=== PATIENT | female | born 1980 | race American Indian/Alaskan Native ===

== ENCOUNTER 2017-05-16 14:53 | Emergency (ER) | payer OTHER ==
[2017-05-16 16:10] LABS: Basophils % (Auto) 0.3 % (0.0-1.8); Eosinophils % (Auto) 1.2 % (0.0-4.3); Hematocrit 32.9 % (30.3-42.9); Hemoglobin 10.6 gm/dl (10.1-14.3); Mean Corpuscular HGB Conc 32 % (30-34); Mean Corpuscular Hemoglobin 28 pg (28-32); Mean Corpuscular Volume 87 fl (79-97); Platelet Count 223 K/mm3 (140-440); Red Blood Count 3.79 M/mm3 (3.65-5.03); Red Cell Distribution Width 13.9 % (13.2-15.2); White Blood Count 6.7 K/mm3 (4.5-11.0)
[2017-05-16 17:26] LABS: Bilirubin,Urine NEG (Negative); Blood,Urine NEG (Negative); Ketones,Urine NEG (Negative); Leukocyte Esterase,Urine NEG (Negative); Mucus,Urine 2+ /HPF; Nitrite,Urine NEG (Negative); Protein,Urine <15 mg/dL mg/dL (Negative)
--- NOTE | 2017-05-16 18:45 | Ultrasound Report ---
FINAL REPORT PROCEDURE: US OB \T\lt; = 14 WEEKS FETUS TECHNIQUE: Real-time transabdominal sonography of the uterus, placenta, amniotic fluid, adnexa, and fetus was performed with image documentation. Measurements were obtained to determine age/size. M-mode Doppler was used to document heartbeat. CPT 57053 HISTORY: passing clots, 6 weeks COMPARISON: No prior studies are available for comparison. FINDINGS: Single live intrauterine is seen with a crown-rump length of 1.3 cm corresponding to 7 weeks 4 days gestational age. Estimated date of delivery based on this measurement is December 29, 2017. heart rate is 165 beats per minute. Small subchorionic hemorrhage is seen. Right ovary measures 3.0 x 2.4 x 2.1 cm. Left ovary measures 2.2 x 1.1 x 1.2 cm. No adnexal masses or free pelvic fluid are seen. IMPRESSION: Single live intrauterine gestation at approximately seven weeks 4 days. EDC by US December 29, 2017. Small subchronic hemorrhage is seen.
--- NOTE | 2017-05-16 19:04 | Ultrasound Report ---
FINAL REPORT PROCEDURE: US OB TRANSVAGINAL TECHNIQUE: Real-time transvaginal sonography of the uterus, placenta, amniotic fluid, adnexa, and fetus was performed with image documentation. Measurements were obtained to determine age/size. M-mode Doppler was used to document heartbeat. CPT 41051 HISTORY: passing clots, 6 weeks COMPARISON: Ultrasound from the same day FINDINGS: Single live intrauterine is seen with crown-rump length of 1.5 cm corresponding to 7 weeks 6 days gestational age. Estimated date of delivery based on this measurement is December 27, 2017. heart rate is 164 beats per minute. There is a small subchorionic hemorrhage. Yolk sac is seen. Right ovary measures 3.0 x 2.4 x 2.1 cm. Left ovary measures 2.2 x 1.1 x 1.2 cm. Color Doppler flow seen in the ovaries. Likely partially collapsed corpus luteal cyst is seen in the right ovary. No free pelvic fluid is seen IMPRESSION: 1. Single living intrauterine gestation at approximately 7 weeks 6 days. 2. EDC by US December 27, 2017 3. Small subchorionic hemorrhage is seen.
[2017-05-16 20:54] VITALS: BP 105/67
== END 2017-05-16 23:00 | disposition left against medical advice (07) ==
LOC: ED 14:53
DX: O26.891 Other specified pregnancy related conditions, first trimester (principal); R10.9 Unspecified abdominal pain; Z3A.01 Less than 8 weeks gestation of pregnancy; Z53.21 Procedure and treatment not carried out due to patient leaving prior to being seen by health care provider
CPT/HCPCS: 36415; 76801; 76817; 81001; 81025; 84702; 85025

== ENCOUNTER 2018-01-03 06:35 | Inpatient (IN) | payer OTHER, MEDICAID ==
[2018-01-03] MEDS ORDERED: MINERAL OIL PO PRN (07:46)
[2018-01-03] MEDS ORDERED: ePHEDrine SULFATE IV PRN (07:46)
[2018-01-03] MEDS ORDERED: STADOL IV PRN (07:46)
[2018-01-03] MEDS ORDERED: SUBLIMAZE IV PRN (07:46)
[2018-01-03] MEDS ORDERED: BRETHINE SUB-Q PRN (07:46)
[2018-01-03] MEDS ORDERED: XYLOCAINE 2% INFILTRATI ONE (07:46)
[2018-01-03] MEDS ORDERED: BRETHINE IVP PRN (07:46)
[2018-01-03] MEDS ORDERED: LACTATED RINGERS 1,000 ML IV SCH (08:00)
[2018-01-03] MEDS ORDERED: PITOCin/NS 20 UNIT/1000ML DRIP 20 UNITS/1,000 ML BAG IV SCH (08:00)
[2018-01-03 08:02] LABS: Basophils % (Auto) 0.1 % (0.0-1.8); Eosinophils # (Auto) 0.1 K/mm3 (0.0-0.4); Eosinophils % (Auto) 0.5 % (0.0-4.3); Hemoglobin 11.3 gm/dl (10.1-14.3); Lymphocytes # (Auto) 1.7 K/mm3 (1.2-5.4); Lymphocytes % (Auto) 15.6 % (13.4-35.0); Mean Corpuscular HGB Conc 32 % (30-34); Mean Corpuscular Hemoglobin 30 pg (28-32); Mean Corpuscular Volume 91 fl (79-97); Monocytes # (Auto) 0.8 K/mm3 (0.0-0.8); Monocytes % (Auto) 7.3 % (0.0-7.3); Platelet Count 139 K/mm3 (140-440); Red Blood Count 3.84 M/mm3 (3.65-5.03); Red Cell Distribution Width 14.3 % (13.2-15.2)
--- NOTE | 2018-01-03 11:39 | History and Physical Report ---
History of Present Illness Date of admission: 01/03/18 06:36 History of present illness: 37 yo EDC 12/24/17 @ 41.3 weeks arrived to triage 3cm. Progressed to . GBS negative. Past History Social history: - Obstetrical History Expected Date of Delivery: 12/24/17 Actual Gestation: 41 Week(s) 3 Day(s) : 7 Medications and Allergies Allergies Allergy/AdvReac Type Severity Reaction Status Date / Time No Known Allergies Allergy Verified 01/03/18 07:33 Active Meds: Active Medications Butorphanol Tartrate (Stadol) 2 mg IV Q2H PRN PRN Reason: Pain , Severe (7-10) Last Admin: 01/03/18 08:11 Dose: 2 mg Ephedrine Sulfate (Ephedrine Sulfate) 10 mg IV Q2M PRN PRN Reason: Hypotension Fentanyl (Sublimaze) 100 mcg IV Q2H PRN PRN Reason: Labor Pain Last Admin: 01/03/18 11:31 Dose: 100 mcg Lactated Ringer's (Lactated Ringers) 1,000 mls @ 125 mls/hr IV DIRECT SARAH Last Admin: 01/03/18 08:10 Dose: 125 mls/hr Oxytocin/Sodium Chloride (Pitocin/Ns 20 Unit/1000ml Drip) 20 units in 1,000 mls @ 125 mls/hr IV DIRECT SARAH Mineral Oil (Mineral Oil) 30 ml PO QHS PRN PRN Reason: Constipation Terbutaline Sulfate (Brethine) 0.25 mg SUB-Q ONCE PRN PRN Reason: Hyperstimulation/Hypertonicity Terbutaline Sulfate (Brethine) 0.25 mg IVP ONCE PRN PRN Reason: Hyperstimulation/Hypertonicity Review of Systems All systems: negative Genitourinary: normal appearance, leakage of fluid, contractions, no vaginal bleeding, no genital sores - Vital Signs Vital signs: Vital Signs Pulse Pulse Ox 110 H 99 01/03/18 06:46 01/03/18 06:46 Temp Pulse Resp BP Pulse Ox 98.4 F 87 20 110/75 98 01/03/18 07:00 01/03/18 10:06 01/03/18 07:00 01/03/18 10:06 01/03/18 06:56 - Physical Exam Abdomen: Positive: normal appearance, soft - Obstetrical FHR: category 1 Uterine Contraction Monitor Mode: External Cervical Dilatation: 8 Cervical Effacement Percentage: 80 station: +1 Uterine Contraction Pattern: Regular Uterine Tone Measurement Phase: Resting Uterine Contraction Intensity: Strong/Firm Results Result Diagrams: 01/03/18 07:20 Abnormal lab results 01/03/18 Range/Units 07:20 Plt Count 139 L (140-440) K/mm3 Seg Neutrophils % 76.5 H (40.0-70.0) % Seg Neutrophils # 8.4 H (1.8-7.7) K/mm3 All other labs normal. Assessment and Plan A: IUP at 41.3 weeks Transitional Labor GBS Negative P: Anticipate
--- NOTE | 2018-01-03 11:46 | Procedure Note ---
OB Delivery Note - Delivery Date of Delivery: 01/03/18 (Female 8.1 @ 1154) Surgeon: LUIS ANTONIO CARLTON Estimated blood loss: 100cc - Vaginal Delivery presentation: vertex Delivery position: OA Intrapartum events: none Delivery induction: none Delivery augmentation: rupture of membranes Delivery monitor: external FHT, external uterine Route of delivery: Delivery placenta: spontaneous Episiotomy: none Delivery laceration: none Anesthesia: none - Infant A at 1 minute: 8 at 5 minutes: 9 Infant Gender: Female (meconium fluid. NICU present. Infant to warmer. Suctioned. Placed skin to skin. Spont. Placenta, Pitocin infusing. Bleeding scant. FF 2 below, U, ML. No lacerations.)
[2018-01-03] MEDS ORDERED: DULCOLAX PR PRN (12:22)
[2018-01-03] MEDS ORDERED: MILK OF MAGNESIA PO PRN (12:22)
[2018-01-03] MEDS ORDERED: TUCKS PAD TP PRN (12:22)
[2018-01-03] MEDS ORDERED: NORCO 5/325 PO PRN (12:22)
[2018-01-03] MEDS ORDERED: PHENERGAN PO PRN (12:22)
[2018-01-03] MEDS ORDERED: LANSINOH TP PRN (12:22)
[2018-01-03] MEDS ORDERED: PHENERGAN PR PRN (12:22)
[2018-01-03] MEDS ORDERED: ZOFRAN IV PRN (12:22)
[2018-01-03] MEDS ORDERED: BENADRYL PO PRN (12:22)
[2018-01-03] MEDS ORDERED: TYLENOL PO PRN (12:22)
[2018-01-03] MEDS ORDERED: SODIUM CHLORIDE FLUSH SYRINGE 10 ML IV SCH (13:00)
[2018-01-03] MEDS: MOTRIN PO SCH ×2 (18:37→23:24)
[2018-01-04 01:24] LABS: Hematocrit 31.2 % (30.3-42.9); Hemoglobin 10.3 gm/dl (10.1-14.3)
[2018-01-04] MEDS: MOTRIN PO SCH ×3 (05:13→21:13)
[2018-01-04] MEDS ORDERED: BOOSTRIX IM ONE (06:00)
[2018-01-04] MEDS ORDERED: PRENATAL VITAMIN PO SCH (10:00)
[2018-01-04] MEDS ORDERED: M-M-R II VACCINE SUB-Q ONE (12:22)
--- NOTE | 2018-01-04 17:45 | Progress Note ---
Assessment and Plan A: PPD# 1 s/p at term, Asymptomatic anemia P: Routine care. Anticipate discharge tomorrow. Subjective - Subjective Date of service: 01/04/18 Principal diagnosis: s/p at term Interval history: No overnight events. Patient reports: appetite normal, voiding normally, pain well controlled, ambulating normally, no nauseated [place]: doing well Objective - Vital Signs Latest vital signs: Vital Signs Temp Pulse Resp BP BP Pulse Ox 01/04/18 16:10 98.2 F 70 20 90/54 01/04/18 08:39 98.2 F 73 20 97/49 01/04/18 00:36 98.7 F 71 88/52 100 01/03/18 21:00 98.4 F 59 L 20 85/43 99 Intake and Output 01/04/18 01/04/18 01/04/18 06:59 14:59 22:59 Intake Total 480 480 240 Output Total 900 Balance -420 480 240 Intake: Oral 480 480 240 Output: Urine 900 Void 900 Other: Total, Intake Amount 240 240 240 Total, Output Amount 500 # Voids Void 1 1 1 - Exam Breasts: Present: deferred Cardiovascular: Present: Regular rate Lungs: Present: Clear to auscultation Abdomen: Present: soft (obese ) Uterus: Present: fundal height below umbilicus Extremities: Present: normal
--- NOTE | 2018-01-04 22:15 | Discharge Summary ---
Providers - Providers Date of Admission: 01/03/18 06:36 Date of discharge: 01/04/18 Attending physician: ALEX MERINO MD Primary care physician: ALEX MERINO MD Hospitalization Reason for admission: active labor Delivery: Procedure details: Please see delivery note. Other procedures: none complications: none Discharge diagnosis: IUP at term delivered [place] baby: female Hospital course: Pt was admitted in active labor and went on to have an which she tolerated well. Her course was uncomplicated and she met discharge criteria on PPD#2. Condition at discharge: Stable Disposition: DC-01 TO HOME OR SELFCARE - Discharge Diagnoses (1) Multiparity, grand, in labor and delivery, delivered Status: Acute (2) Obesity Status: Acute Qualifiers: Obesity type: unspecified obesity type Obesity classification: adult class 2 (BMI 35 - 39.9) Serious obesity comorbidity presence: unspecified whether serious comorbidity present Body mass index: BMI 35.0-35.9 Qualified Code(s) : E66.9 - Obesity, unspecified; Z68.35 - Body mass index (BMI) 35.0-35.9, adult (3) Term of female Status: Acute (4) Anemia Status: Acute Qualifiers: Anemia type: unspecified type Qualified Code(s): D64.9 - Anemia, unspecified Plan - Discharge Medications Prescriptions: HYDROcodone/ACETAMINOPHEN [[place] 5-325 Tablet] 1 each PO Q6H PRN #30 tablet PRN Reason: Pain Ibuprofen [Motrin] 800 mg PO Q8HR PRN #30 tablet PRN Reason: Pain - Provider Discharge Summary Activity: routine, no sex for 6 weeks, no heavy lifting 4 weeks, no strenuous exercise Diet: routine Instructions: routine Additional instructions: [] Smoking cessation referral if applicable(refer to patient education folder for contact #) [] Refer to [facility] Booklet Call your doctor immediately for: * Fever > 100.5 * Heavy vaginal bleeding ( >1 pad per hour) * Severe persistent headache * Shortness of breath * Reddened, hot, painful area to leg or breast * Drainage or odor from incision. * Keep incision clean and dry at all times and follow doctor's instructions regarding bathing/showering - Follow up plan Follow up: ALEX MERINO MD [Primary Care Provider] - 02/01/18 (please call to schedule appt )
[2018-01-05] MEDS: MOTRIN PO SCH ×2 (00:10→05:46)
[2018-01-05 10:17] VITALS: BP 83/46
== END 2018-01-05 16:15 | disposition home or self-care (01) | DRG 775 ==
LOC: TRG 06:35 → LD 06:36 → OB 15:09
PROVIDERS: ADMIT Obstetrics & Gynecology; ATTEND Obstetrics & Gynecology
PROC: 10E0XZZ Delivery of Products of Conception, External Approach (ICD-10-PCS; principal; 2018-01-03)
PROC: 3E0234Z Introduction of Serum, Toxoid and Vaccine into Muscle, Percutaneous Approach (ICD-10-PCS; 2018-01-04)
DX: O99.214 Obesity complicating childbirth (principal); D64.9 Anemia, unspecified; O99.03 Anemia complicating the puerperium; E66.9 Obesity, unspecified; Z68.35 Body mass index [BMI] 35.0-35.9, adult; Z3A.41 41 weeks gestation of pregnancy; Z37.0 Single live birth; Z23 Encounter for immunization; O77.0 Labor and delivery complicated by meconium in amniotic fluid
CPT/HCPCS: 36415; 85014; 85018; 85025; 86592; 86850; 86900; 86901; 90471; 90715; 99211; G0463; J0595; J2590; J3010; J7120